=== PATIENT | female | born 1995 | race Caucasian/White ===

== ENCOUNTER → 2017-06-13 10:11 | Outpatient (CLI) | payer OTHER, MEDICAID, SELFPAY ==
[2017-06-13] MEDS: Dextrose 5%-Lactated Ringers 1,000 ML 1000 ML IV (10:11)
[2017-06-13] MEDS: Ondansetron 4 MG/2 ML Vial IV (10:11)
[2017-06-13 10:22] VITALS: BP 97/62; PULSE 114; RESP 18; TEMP 36.8; O2SAT 98; BMI 21.7
== END ==
PROVIDERS: Visit Provider Obstetrics & Gynecology
DX: E86.0 Dehydration (principal); R11.0 Nausea
CPT/HCPCS: 96361; 96374; 96375; A4216; J2405

== ENCOUNTER → 2017-06-18 11:01 | Outpatient (CLI) | payer OTHER, MEDICAID, SELFPAY ==
[2017-06-18 11:49] LABS: Absolute Lymphocyte Count 1.75 X10^3/ul (0.83-4.51); Basophil# 0.01 X10^3/uL; Basophil% 0.1 % (0-1); Eosinophil# 0.03 X10^3/uL; Eosinophils% 0.3 % (0-5); Hematocrit 34.3 % (37-47); Hemoglobin 11.7 g/dl (12.0-15.0); Lymphocyte # 1.75 X10^3/ul (4.0); Lymphocyte % 16.8 % (19-41); Mean Corp Hgb Conc 34.1 g/gl (32-36); Mean Corpuscular Hgb 30.8 pg (27.0-32.0); Mean Corpuscular Volume 90.3 fL (81-99); Mean Platelet Vol. 10.2 fl (6.2-12.0); Monocyte# 0.61 X10^3/uL; Monocyte% 5.9 % (0-10); Neutrophil # 7.99 X10^3/uL (2.7-7.7); Neutrophil % 76.7 % (47-70); Platelet Count 230 K/mm3 (150-450); RBC Distribution Width CV 12.7 % (11.6-14.6); RBC Distribution Width SD 40.9 fl (35.1-43.9); White Blood Count 10.4 K/mm3 (4.4-11.0)
[2017-06-18 11:50] LABS: POSITIVE COUNT NO; POSITIVE DIFFERENTIAL NO; POSITIVE MORPHOLOGY NO
[2017-06-18 12:06] LABS: Glucose Challenge Gest 1H 50g 109 mg/dL (70-140)
== END ==
PROVIDERS: Visit Provider Obstetrics & Gynecology
DX: Z34.90 Encounter for supervision of normal pregnancy, unspecified, unspecified trimester (principal)
CPT/HCPCS: 36415; 82950; 85025

== ENCOUNTER → 2017-08-20 15:07 | Outpatient (CLI) | payer OTHER, MEDICAID, SELFPAY ==
[2017-08-20 16:32] LABS: Group B Strep DNA By PCR Negative (Negative); Internal Control PASS; Probe Check PASS; Specimen Processing Control PASS
== END ==
PROVIDERS: Visit Provider Obstetrics & Gynecology
DX: Z34.00 Encounter for supervision of normal first pregnancy, unspecified trimester (principal)
CPT/HCPCS: 87081; 87653

== ENCOUNTER 2017-09-20 22:50 | Inpatient (IN) | payer OTHER, MEDICAID, SELFPAY ==
[2017-09-20 23:26] VITALS: BMI 24.8
[2017-09-20] MEDS: Lactated Ringers 1,000 ML 50 ML IV (23:38)
[2017-09-20 23:54] LABS: Hematocrit 31.3 % (37-47); Hemoglobin 10.6 g/dl (12.0-15.0); Mean Corp Hgb Conc 33.9 g/gl (32-36); Mean Corpuscular Hgb 29.2 pg (27.0-32.0); Mean Corpuscular Volume 86.2 fL (81-99); Mean Platelet Vol. 10.4 fl (6.2-12.0); Platelet Count 208 K/mm3 (150-450); RBC Distribution Width CV 12.8 % (11.6-14.6); RBC Distribution Width SD 40.4 fl (35.1-43.9); Red Blood Count 3.63 M/mm3 (4.2-5.4); White Blood Count 13.4 K/mm3 (4.4-11.0)
[2017-09-20 23:55] LABS: Scan Indicated on CBC? Y/N NO
[2017-09-21] MEDS: Lactated Ringers 1,000 ML 50 ML IV ×3 (01:30→11:30)
[2017-09-21] MEDS: fentaNYL-bupivacaine (epidural) 100 ML BAG EPIDURAL ×2 (02:00→06:53)
[2017-09-21] MEDS: Oxytocin 30 units/NS 500 ml 30 UNITS/500 ML IV.SOLN IV (03:55)
[2017-09-21] MEDS: Oxytocin 30 units/NS 500 ml 30 UNITS/500 ML IV.SOLN 334 UNITS IV (11:00)
[2017-09-21] MEDS: Oxytocin 30 units/NS 500 ml 30 UNITS/500 ML IV.SOLN 167 UNITS IV (11:30)
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
[2017-09-21 11:46] LABS: Absolute Lymphocyte Count 1.05 X10^3/ul (0.83-4.51); Hematocrit 26.5 % (37-47); Hemoglobin 8.9 g/dl (12.0-15.0); Lymphocyte # 1.05 X10^3/ul (4.0); Mean Corp Hgb Conc 33.6 g/gl (32-36); Mean Corpuscular Hgb 29.3 pg (27.0-32.0); Mean Corpuscular Volume 87.2 fL (81-99); Mean Platelet Vol. 10.2 fl (6.2-12.0); Monocyte# 0.97 X10^3/uL; Monocyte% 6.5 % (0-10); Neutrophil # 12.96 X10^3/uL (2.7-7.7); Neutrophil % 86.3 % (47-70); Platelet Count 191 K/mm3 (150-450); RBC Distribution Width CV 12.9 % (11.6-14.6); RBC Distribution Width SD 41.7 fl (35.1-43.9); Red Blood Count 3.04 M/mm3 (4.2-5.4)
[2017-09-21 11:52] LABS: POSITIVE COUNT NO; POSITIVE DIFFERENTIAL NO; POSITIVE MORPHOLOGY NO
[2017-09-21] MEDS: Naproxen 250 MG Tablet PO (16:14)
[2017-09-21 16:20] VITALS: BP 121/62; PULSE 117; RESP 16; TEMP 37.7
[2017-09-21 18:00] VITALS: TEMP 36.5
[2017-09-21] MEDS: 0.9% Saline Lock 10 ML Syringe IV (19:03)
[2017-09-21 20:30] VITALS: BP 110/55; PULSE 108; RESP 16; TEMP 37.3; O2SAT 98
[2017-09-21] MEDS: Acetaminophen 500 MG Tablet 1000 MG PO (23:18)
[2017-09-21 23:21] VITALS: BP 106/45; PULSE 91; RESP 16; TEMP 37.1; O2SAT 98
[2017-09-22 05:44] VITALS: BP 95/42; PULSE 78; RESP 16; TEMP 36.6; O2SAT 98
[2017-09-22 06:22] LABS: Hematocrit 20.9 % (37-47); Hemoglobin 6.9 g/dl (12.0-15.0); Mean Corpuscular Hgb 29.7 pg (27.0-32.0); Mean Corpuscular Volume 90.1 fL (81-99); Platelet Count 176 K/mm3 (150-450); RBC Distribution Width CV 12.7 % (11.6-14.6); RBC Distribution Width SD 39.8 fl (35.1-43.9); Red Blood Count 2.32 M/mm3 (4.2-5.4); Scan Indicated on CBC? Y/N NO; White Blood Count 15.4 K/mm3 (4.4-11.0)
[2017-09-22 09:40] VITALS: BP 106/53; PULSE 101; RESP 18; TEMP 37.1; O2SAT 99
[2017-09-22] MEDS: Naproxen 250 MG Tablet PO ×2 (09:44→18:03)
[2017-09-22] MEDS: Dibucaine 30 GM Tube 1 APPLIC TOPICAL (10:05)
--- NOTE | 2017-09-22 10:18 | PCM.PN.OB ---
Subjective: doing well no complaints - Physical Exam General: Alert, Oriented x3 Vital Signs Temp Pulse Resp BP Pulse Ox 98.8 F 101 H 18 106/53 L 99 09/22/17 09:40 09/22/17 09:40 09/22/17 09:40 09/22/17 09:40 09/22/17 09:40 Oxygen Delivery Method Room Air Weight: 158 lb 8 oz Body Mass Index (BMI) 24.8 Finger Stick Blood Glucose 104 Intake and Output for Last 24 Hours 09/20/17 09/21/17 09/22/17 23:59 23:59 23:59 Intake Total 3424 / 3424 Output Total 3500 / 3500 Balance -76 / -76 Laboratory Tests Past 24 Hrs 09/20/17 09/21/17 09/22/17 23:38 10:35 06:05 WBC 15.0 H 15.4 H RBC 3.04 L 2.32 L Hgb 8.9 L 6.9 L Hct 26.5 L 20.9 L MCV 87.2 90.1 MCH 29.3 29.7 MCHC 33.6 33.0 RDW 12.9 12.7 RDW Differential 41.7 39.8 Plt Count 191 176 MPV 10.2 10.0 Immature Gran % (Auto) 0.200 Neut % (Auto) 86.3 H Lymph % (Auto) 7.0 L [place] % (Auto) 6.5 Eos % (Auto) 0.0 Baso % (Auto) 0.0 Absolute Neuts (auto) 13.0 H Absolute Lymphs (auto) 1.05 Total Counted Not Reportable Crossmatch See Detail Medical Necessity - Tobacco Use Smoking Status: Never smoker Assessment/Plan s/p doingw [facility] routine care
[2017-09-22 12:50] VITALS: BP 101/67; PULSE 86; RESP 16; TEMP 36.8; O2SAT 98
[2017-09-22] MEDS: Acetaminophen 500 MG Tablet 1000 MG PO ×2 (13:03→22:30)
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
[2017-09-22 15:15] VITALS: BP 109/64; PULSE 88; RESP 14; TEMP 36.6; O2SAT 100
[2017-09-22 20:05] VITALS: BP 114/58; PULSE 122; RESP 16; TEMP 36.6; O2SAT 99
[2017-09-23 02:35] VITALS: BP 112/50; PULSE 110; RESP 16; TEMP 36.9; O2SAT 98
[2017-09-23 09:30] VITALS: BP 111/41; PULSE 101; RESP 18; TEMP 36.3; O2SAT 98
[2017-09-23] MEDS: Naproxen 250 MG Tablet PO (09:50)
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
--- NOTE | 2017-09-23 11:11 | PN.OBGYN_ITS ---
Subjective: doing well no complaints - Physical Exam General: Alert, Oriented x3 Vital Signs Temp Pulse Resp BP Pulse Ox 97.3 F L 101 H 18 111/41 L 98 09/23/17 09:30 09/23/17 09:30 09/23/17 09:30 09/23/17 09:30 09/23/17 09:30 Oxygen Delivery Method Room Air Weight: 158 lb 8 oz Body Mass Index (BMI) 24.8 Finger Stick Blood Glucose 104 Intake and Output for Last 24 Hours 09/21/17 09/22/17 09/23/17 23:59 23:59 23:59 Intake Total 3424 / 3424 Output Total 3500 / 3500 700 / 700 Balance -76 / -76 -700 / -700 Medical Necessity - Tobacco Use Smoking Status: Never smoker Assessment/Plan s/p doingw [facility] routine care id home
--- NOTE | 2017-09-23 11:13 | PCM.DCVAG ---
Discharge Diet: No Restrictions Discharge Activity: Return to Normal Activity, May not drive while taking narcotic pain medications., May Shower May resume sexual activity in: 4-6 weeks Call your doctor if your incision/area has: Continuous Slow Oozing, Sudden Increased Bleeding, Increased Pain/ Swelling, Increased Redness, Foul Smelling Discharge Instructions: After a Vaginal , Safety Tips for Bathing Your Baby, How to Breastfeed, Holds for , Expressing Breastmilk, Storing Breastmilk, Nutrition While , Anatomy of , Common Questions About , The Benefits of , : Caring for Yourself, at Home Additional Instructions: If you experience any of the following, contact your healthcare provider. Bleeding that soaks a pad every hour for 2 hours Fever 100.4 or higher Unrelieved incision or abdominal pain Swelling, redness, discharge or bleeding from your incision or episiotomy site Your incision begins to separate Problems urinating (including inability to urinate or burning while urinating). Visual changes Severe headache Flu-like symptoms Pain or redness in one of both of your breasts Pain, warmth, tenderness or swelling in your legs, especially the calf area Frequent nausea and vomiting Symptoms of depression or anxiety If you experience any of the following, call 911 or go to the nearest Emergency Room. Chest pain Problems breathing Seizure activity Partial or complete paralysis of a body part, slurred speech, weakness or drooping of the face, or a sudden inability to walk or hold your balance Allergies/Adverse Reactions: Allergies No Known Allergies Allergy (Verified 09/19/17 14:39) Medications to take at Discharge vitamin,calcium,mkmfbxdm-ndto-usumx acid tablet 1 tab PO QDAY 04/06/17 Naproxen [Naprosyn] 250 - 500 mg PO Q8H PRN PRN #30 tab 09/23/17 The following prescriptions were given: Naproxen [Naprosyn] 250 - 500 mg PO Q8H PRN PRN #30 tab PRN Reason: MILD PAIN Please Follow Up With: Mildred Stiles MD - [phone] When: Call to make an appointment with your doctor in 6 weeks. If you had elevated Blood pressure or 4th degree laceration you will need to be seen in 2 weeks. Primary Care Physician: Care Physician,No Primary [Primary Care Provider] -
--- NOTE | 2017-09-23 11:14 | DCINST_ITS ---
Discharge Diet: No Restrictions Discharge Activity: Return to Normal Activity, May not drive while taking narcotic pain medications., May Shower May resume sexual activity in: 4-6 weeks Call your doctor if your incision/area has: Continuous Slow Oozing, Sudden Increased Bleeding, Increased Pain/ Swelling, Increased Redness, Foul Smelling Discharge Instructions: After a Vaginal , Safety Tips for Bathing Your Baby, How to Breastfeed, Holds for , Expressing Breastmilk, Storing Breastmilk, Nutrition While , Anatomy of , Common Questions About , The Benefits of , : Caring for Yourself , at Home Additional Instructions: If you experience any of the following, contact your healthcare provider. * Bleeding that soaks a pad every hour for 2 hours * Fever 100.4 or higher * Unrelieved incision or abdominal pain * Swelling, redness, discharge or bleeding from your incision or episiotomy site * Your incision begins to separate * Problems urinating (including inability to urinate or burning while urinating) . * Visual changes * Severe headache * Flu-like symptoms * Pain or redness in one of both of your breasts * Pain, warmth, tenderness or swelling in your legs, especially the calf area * Frequent nausea and vomiting * Symptoms of depression or anxiety If you experience any of the following, call 911 or go to the nearest Emergency Room. * Chest pain * Problems breathing * Seizure activity * Partial or complete paralysis of a body part, slurred speech, weakness or drooping of the face, or a sudden inability to walk or hold your balance Allergies/Adverse Reactions: Allergies No Known Allergies Allergy (Verified 09/19/17 14:39) Medications to take at Discharge vitamin,calcium,biaklman-jmwo-hvyhg acid tablet 1 tab PO QDAY 04/06/17 Naproxen [Naprosyn] 250 - 500 mg PO Q8H PRN PRN #30 tab 09/23/17 The following prescriptions were given: Naproxen [Naprosyn] 250 - 500 mg PO Q8H PRN PRN #30 tab PRN Reason: MILD PAIN Please Follow Up With: Mildred Stiles MD - [phone] When: Call to make an appointment with your doctor in 6 weeks. If you had elevated Blood pressure or 4th degree laceration you will need to be seen in 2 weeks. Primary Care Physician: Care Physician,No Primary [Primary Care Provider] -
== END 2017-09-23 12:10 | disposition home or self-care (01) | DRG 775 ==
PROVIDERS: Admitting Provider Obstetrics & Gynecology; Visit Provider Obstetrics & Gynecology
DX: O70.1 Second degree perineal laceration during delivery (principal); Z37.0 Single live birth; Z3A.40 40 weeks gestation of pregnancy
CPT/HCPCS: 59025; 59050; 85025; 85027; 86850; 86900; 86920; 99218; J7120; A4216; G0378

== ENCOUNTER → 2019-07-03 15:06 | Outpatient (CLI) | payer BC, MEDICAID, SELFPAY ==
[2019-07-03 10:50] VITALS: BMI 19.7
== END ==
PROVIDERS: Referring Provider Nurse Practitioner Women's Health; Visit Provider Nurse Practitioner Women's Health
DX: R10.2 Pelvic and perineal pain (principal); Z30.431 Encounter for routine checking of intrauterine contraceptive device
CPT/HCPCS: 87070; 87205

== ENCOUNTER → 2020-05-25 12:38 | Outpatient (CLI) | payer MEDICAID, SELFPAY ==
[2020-05-25 10:55] VITALS: BMI 20.3
== END ==
LOC: LAB 12:39 → LABSPEC 12:40
PROVIDERS: Referring Provider Obstetrics & Gynecology; Visit Provider Obstetrics & Gynecology
DX: R30.0 Dysuria (principal)
CPT/HCPCS: 87086; 87088

== ENCOUNTER → 2020-06-09 14:55 | Outpatient (CLI) | payer MEDICAID, SELFPAY ==
[2020-05-25 10:55] VITALS: BMI 20.3
--- NOTE | 2020-06-09 14:59 | US_ITS ---
EXAM: US RETROPERITONEAL COMPLETE, RENAL CLINICAL INDICATION: UTI''S TECHNIQUE: Grayscale and color Doppler sonographic evaluation of the retroperitoneum was performed. This report was created using [employer] report generation technology. COMPARISON: None. FINDINGS: RIGHT KIDNEY: Unremarkable. No hydronephrosis. No shadowing calculus. No focal lesion. No perinephric collection is demonstrated. LEFT KIDNEY: Unremarkable. No hydronephrosis. No shadowing calculus. No focal lesion. No perinephric collection is demonstrated. BLADDER: No acute findings. US/Kidney and Bladder IMPRESSION: Unremarkable complete retroperitoneal ultrasound. Electronically Signed: Washington Elise MD ([place]) at 17:00 EST , Service support ,
--- NOTE | 2020-06-09 14:59 | US_ITS ---
EXAM: US PELVIS TRANSABDOMINAL AND TRANSVAGINAL, COMPLETE CLINICAL INDICATION: IUD PLACEMENT. PLACED APR 2018 TECHNIQUE: Transabdominal and transvaginal pelvic ultrasound was performed with grayscale and color Doppler imaging. Transvaginal imaging was used for better evaluation of the endometrium and adnexa. This report was created using [employer] report generation technology. COMPARISON: None. FINDINGS: UTERUS/CERVIX: IUD in the fundal endometrial canal. Endometrial complex measures 5 mm. Anteverted. There is no uterine mass. RIGHT OVARY: Right ovary measures 1.6 x 1.9 x 2.4 cm. Multiple ovarian follicles. Blood flow is present in the right ovary. LEFT OVARY: Left ovary measures 2.6 x 3.3 x 1.1 cm. Multiple ovarian follicles. Blood flow is present in the left ovary. FREE FLUID: Physiologic quantity of free fluid. BLADDER: Unremarkable as visualized. Wall is normal thickness for degree of distention. US/Transvaginal Non- IMPRESSION: IUD in the fundal endometrial canal. Electronically Signed: Washington Elise MD ([place]oks) at 16:22 EST , Service support ,
--- NOTE | 2020-06-09 14:59 | US_ITS ---
EXAM: US PELVIS TRANSABDOMINAL AND TRANSVAGINAL, COMPLETE CLINICAL INDICATION: IUD PLACEMENT. PLACED APR 2018 TECHNIQUE: Transabdominal and transvaginal pelvic ultrasound was performed with grayscale and color Doppler imaging. Transvaginal imaging was used for better evaluation of the endometrium and adnexa. This report was created using [employer] report generation technology. COMPARISON: None. FINDINGS: UTERUS/CERVIX: IUD in the fundal endometrial canal. Endometrial complex measures 5 mm. Anteverted. There is no uterine mass. RIGHT OVARY: Right ovary measures 1.6 x 1.9 x 2.4 cm. Multiple ovarian follicles. Blood flow is present in the right ovary. LEFT OVARY: Left ovary measures 2.6 x 3.3 x 1.1 cm. Multiple ovarian follicles. Blood flow is present in the left ovary. FREE FLUID: Physiologic quantity of free fluid. BLADDER: Unremarkable as visualized. Wall is normal thickness for degree of distention. US/Pelvic (Non ) IMPRESSION: IUD in the fundal endometrial canal. Electronically Signed: Washington Elise MD ([place]) at 16:22 EST , Service support ,
== END ==
PROVIDERS: PCP Student in an Organized Health Care Education/Training Program; Referring Provider Urology; Visit Provider Urology
DX: N39.0 Urinary tract infection, site not specified (principal)
CPT/HCPCS: 76770; 76830; 76856

== ENCOUNTER → 2024-10-07 | Outpatient (CLI) | payer MEDICAID, SELFPAY ==
[2024-10-10 14:08] LABS: HPV APTIMA, High Risk Negative (Negative)
== END | disposition home or self-care (01) ==
LOC: LABSPEC 15:10
PROVIDERS: PCP Student in an Organized Health Care Education/Training Program; Referring Provider Nurse Practitioner Women's Health; Visit Provider Nurse Practitioner Women's Health
DX: Z12.4 Encounter for screening for malignant neoplasm of cervix (principal)
CPT/HCPCS: 87624; 88175; G0145